=== PATIENT | male | born 1950 | race African-American/Black ===

== ENCOUNTER 2018-01-08 05:25 | Day surgery (SDC) | payer MEDICARE ==
[~2018-01-08] VITALS: Ht 193 cm; Wt 79.8 kg
[~2018-01-08 05:25] MED LIST: AMLO10TA80 PO; ASPI-1158 PO; HYDR500C18 PO; LOSA50TA20 PO; METO-385 PO; MULT-1008; SIMV20TA2 PO
[2018-01-08] MEDS ORDERED: SODIUM CHLORIDE 0.9% 1,000 ML IV SCH (06:25)
[2018-01-08] MEDS ORDERED: SKIN ADHESIVE 0.7 GM EA TOP ONE (07:24)
[2018-01-08] MEDS ORDERED: BUPIVACAINE HCL 0.5% (5MG/ML) 50ML ONE (07:24)
[2018-01-08] MEDS ORDERED: MIDAZOLAM HCL 2 MG/2 ML VIAL ONE (07:37)
[2018-01-08] MEDS ORDERED: ROCURONIUM BROMIDE 10MG/ML VIAL 5ML IV ONE (07:37)
[2018-01-08] MEDS ORDERED: PROPOFOL 200MG/20ML VIAL IV ONE (07:37)
[2018-01-08] MEDS ORDERED: FENTANYL CITRATE/PF 50MCG/ML 5ML VIAL ONE (07:37)
[2018-01-08] MEDS ORDERED: ONDANSETRON HCL 4MG/2ML INJ IV PRN (08:00)
[2018-01-08] MEDS ORDERED: FENTANYL CITRATE/PF 50MCG/ML 2ML VIAL IV PRN (08:00)
[2018-01-08] MEDS ORDERED: GLYCOPYRROLATE 0.2 MG/ML 2ML VIAL ONE (08:11)
[2018-01-08] MEDS ORDERED: LIDOCAINE HCL/PF 1% 10 MG/ML 5ML VIAL ONE (08:17)
[2018-01-08] MEDS ORDERED: CEFAZOLIN SODIUM 1000MG/VIAL ONE (08:17)
[2018-01-08] MEDS ORDERED: METOCLOPRAMIDE HCL 10MG/2ML VIAL ONE (08:18)
[2018-01-08] MEDS ORDERED: DEXAMETHASONE 4MG/ML 1ML VIAL ONE (08:18)
[2018-01-08] MEDS ORDERED: ONDANSETRON HCL 4MG/2ML INJ ONE (08:18)
[2018-01-08] MEDS ORDERED: KETOROLAC 30MG/ML VIAL ONE (08:18)
== END 2018-01-08 10:30 | disposition home or self-care (01) ==
LOC: OR 05:25
PROVIDERS: ATTEND Surgery
DX: K40.90 Unilateral inguinal hernia, without obstruction or gangrene, not specified as recurrent (principal); J44.9 Chronic obstructive pulmonary disease, unspecified; I11.9 Hypertensive heart disease without heart failure; E78.2 Mixed hyperlipidemia; Z79.899 Other long term (current) drug therapy; Z79.82 Long term (current) use of aspirin
CPT/HCPCS: 49505; C1781; G0168; J0690; J1100; J1885; J2250; J2405; J2765; J3010; J3490; J7030; J2704

== ENCOUNTER 2018-05-20 07:35 | Inpatient (IN) | payer MEDICARE ==
[~2018-05-20] VITALS: Ht 193 cm; Wt 83.0 kg
[2018-05-20] MEDS ORDERED: ASPIRIN 81MG TABLET PO ONE (09:45)
[2018-05-20 10:05] LABS: HEMATOCRIT. 51.2 % (42.0-52.0); HEMOGLOBIN. 17.7 g/dL (14.0-18.0); MEAN CORPUSCULAR HEMOGLOBIN 38.2 pg (28.0-32.0); MEAN CORPUSCULAR VOLUME 110.1 fL (80.0-94.0); MEAN PLATELET VOLUME 10.6 fl (7.4-10.4); PLATELET 211 x1000/uL (130-400); RED BLOOD CELL COUNT 4.65 mill/uL (4.7-6.1); RED CELL DISTRIBUTION WIDTH 13.4 % (11.6-14.6)
[2018-05-20 10:12] LABS: CHLORIDE 103 mEq/L (98-107)
[2018-05-20 10:13] LABS: CLARITY URINE CLEAR (CLEAR); COLOR URINE YELLOW (YELLOW); KETONES URINE NEGATIVE (NEGATIVE); LEUKOCYTE ESTERASE URINE NEGATIVE (NEGATIVE); NITRITE URINE NEGATIVE (NEGATIVE); OCCULT BLOOD URINE 1+ (NEGATIVE); PH URINE 5.5 (4.5-8.0); PROTEIN URINE 2+ (NEGATIVE); SPECIFIC GRAVITY URINE 1.016 (1.005-1.030); UROBILINOGEN URINE 0.2 E.U./dL (0.2-1.0)
[2018-05-20] MEDS ORDERED: ONDANSETRON HCL 4MG/2ML INJ IV STA (10:26)
[2018-05-20] MEDS ORDERED: MORPHINE SULFATE 4 MG/ML CPJ (NOT FOR IM USE) IV STA (10:26)
[2018-05-20] MEDS ORDERED: ENALAPRIL 2.5MG/2ML VIAL 2ML IV ONE (10:30)
[2018-05-20] MEDS ORDERED: AZITHROMYCIN 500 MG in DEXT 5% WATER 250 ML IV STA (10:32)
[2018-05-20 11:03] LABS: PLATELET ESTIMATE NORMAL
[2018-05-20 11:48] LABS: INR 1.1; PARTIAL THROMBOPLASTIN TIME 25.1 sec (23.4-31.0); PROTHROMBIN TIME 10.7 sec (9.1-11.1)
[2018-05-20 11:56] LABS: PHOSPHORUS 4.4 mg/dL (2.5-4.9)
[2018-05-20 12:05] LABS: CREATINE KINASE MB FRACTION 3.7 ng/mL (0.5-3.6)
[2018-05-20] MEDS ORDERED: MORPHINE SULFATE 4 MG/ML CPJ (NOT FOR IM USE) IV ONE (12:30)
[2018-05-20 15:14] VITALS: BP 183/97
[2018-05-20 16:00] VITALS: BP 176/92
[2018-05-20] MEDS ORDERED: IPRATROPIUM/ALBUTEROL 0.5-3(2.5)MG/3ML NEB HHN PRN (16:45)
[2018-05-20] MEDS ORDERED: CLONIDINE 0.2MG TABLET PO PRN (17:15)
[2018-05-20] MEDS: AMLODIPINE 5MG TABLET PO SCH (17:38)
[2018-05-20 18:00] VITALS: BP 170/87
[2018-05-20] MEDS: CLONIDINE 0.1MG TABLET PO PRN (18:50)
[2018-05-20 20:00] VITALS: BP 170/86
[2018-05-20] MEDS: METOPROLOL TARTRATE 25MG TABLET PO SCH (20:58)
[2018-05-20] MEDS: MORPHINE SULFATE 4 MG/ML CPJ (NOT FOR IM USE) IV PRN (21:03)
[2018-05-20 22:00] VITALS: BP 149/74
[2018-05-21] VITALS (11 sets, daily range): BP systolic 110–154; BP diastolic 53–76
[2018-05-21 07:03] LABS: BASOPHILS % 0.6 % (0.0-2.0); EOSINOPHILS % 1.4 % (0.0-5.0); HEMATOCRIT. 42.3 % (42.0-52.0); HEMOGLOBIN. 14.5 g/dL (14.0-18.0); LYMPHOCYTES % 20.5 % (20.0-50.0); MEAN CORPUSCULAR HEMOGLOBIN 37.7 pg (28.0-32.0); MEAN CORPUSCULAR VOLUME 110.1 fL (80.0-94.0); MEAN PLATELET VOLUME 10.7 fl (7.4-10.4); NEUTROPHILS % 64.5 % (40.0-76.0); PLATELET 171 x1000/uL (130-400); RED BLOOD CELL COUNT 3.84 mill/uL (4.7-6.1); RED CELL DISTRIBUTION WIDTH 13.4 % (11.6-14.6)
[2018-05-21 07:43] LABS: CREATINE KINASE MB FRACTION 1.7 ng/mL (0.5-3.6)
[2018-05-21] MEDS: AMLODIPINE 5MG TABLET PO SCH ×2 (08:48→22:03)
[2018-05-21] MEDS: METOPROLOL TARTRATE 25MG TABLET PO SCH ×2 (08:49→22:03)
[2018-05-21] MEDS: MORPHINE SULFATE 4 MG/ML CPJ (NOT FOR IM USE) IV PRN ×2 (09:19→18:47)
[2018-05-21] MEDS: SODIUM CHLORIDE 0.9% 1,000 ML IV SCH ×2 (11:15→22:04)
[2018-05-21] MEDS: TRAMADOL 50MG TABLET PO PRN (13:47)
[2018-05-22] VITALS (12 sets, daily range): BP systolic 140–175; BP diastolic 69–119
[2018-05-22] MEDS: MORPHINE SULFATE 4 MG/ML CPJ (NOT FOR IM USE) IV PRN (05:45)
[2018-05-22 07:23] LABS: BASOPHILS % 0.5 % (0.0-2.0); HEMATOCRIT. 40.7 % (42.0-52.0); LYMPHOCYTES % 17.6 % (20.0-50.0); MEAN CORPUSCULAR HEMOGLOBIN 37.8 pg (28.0-32.0); MEAN CORPUSCULAR VOLUME 109.9 fL (80.0-94.0); MEAN PLATELET VOLUME 10.9 fl (7.4-10.4); MONOCYTES % 12.1 % (2.0-8.0); NEUTROPHILS % 67.8 % (40.0-76.0); PLATELET 151 x1000/uL (130-400); RED CELL DISTRIBUTION WIDTH 13.5 % (11.6-14.6)
[2018-05-22] MEDS: METOPROLOL TARTRATE 25MG TABLET PO SCH ×2 (08:16→21:25)
[2018-05-22] MEDS: SODIUM CHLORIDE 0.9% 1,000 ML IV SCH ×2 (08:16→17:57)
[2018-05-22] MEDS: AMLODIPINE 5MG TABLET PO SCH ×2 (08:17→21:25)
[2018-05-22] MEDS: FOLIC ACID/VITAMIN B COMP W-C TABLET PO SCH (13:37)
[2018-05-22] MEDS: HYDRALAZINE HCL 25MG TABLET PO SCH ×2 (13:38→21:25)
[2018-05-22] MEDS: TRAMADOL 50MG TABLET PO PRN ×2 (13:38→21:32)
[2018-05-23] VITALS (12 sets, daily range): BP systolic 155–178; BP diastolic 77–89
[2018-05-23] MEDS: MORPHINE SULFATE 4 MG/ML CPJ (NOT FOR IM USE) IV PRN (02:38)
[2018-05-23] MEDS: SODIUM CHLORIDE 0.9% 1,000 ML IV SCH ×2 (03:50→13:49)
[2018-05-23] MEDS: HYDRALAZINE HCL 25MG TABLET PO SCH ×2 (05:44→14:31)
[2018-05-23] MEDS: TRAMADOL 50MG TABLET PO PRN ×3 (05:48→19:52)
[2018-05-23 07:59] LABS: BASOPHILS % 0.4 % (0.0-2.0); EOSINOPHILS % 1.2 % (0.0-5.0); LYMPHOCYTES % 12.3 % (20.0-50.0); MEAN CORPUSCULAR HEMOGLOBIN 37.6 pg (28.0-32.0); MEAN CORPUSCULAR VOLUME 109.9 fL (80.0-94.0); MEAN PLATELET VOLUME 10.4 fl (7.4-10.4); MONOCYTES % 10.2 % (2.0-8.0); NEUTROPHILS % 75.9 % (40.0-76.0); PLATELET 164 x1000/uL (130-400); RED BLOOD CELL COUNT 3.73 mill/uL (4.7-6.1); RED CELL DISTRIBUTION WIDTH 13.3 % (11.6-14.6)
[2018-05-23] MEDS: METOPROLOL TARTRATE 25MG TABLET PO SCH ×2 (08:16→21:07)
[2018-05-23] MEDS: AMLODIPINE 5MG TABLET PO SCH (08:16)
[2018-05-23] MEDS: FOLIC ACID/VITAMIN B COMP W-C TABLET PO SCH (08:16)
[2018-05-23] MEDS: SODIUM CHLORIDE 0.45% 1,000 ML IV SCH ×2 (09:49→19:25)
[2018-05-23] MEDS: NIFEDIPINE XL 60MG TAB PO SCH (15:06)
[2018-05-23 19:11] LABS: ANTI-NUCLEAR ANTIBODIES DIRECT Negative (Negative)
[2018-05-23] MEDS: HYDRALAZINE HCL 50MG TABLET PO SCH (21:08)
[2018-05-24] VITALS (12 sets, daily range): BP systolic 124–146; BP diastolic 67–77
[2018-05-24] MEDS: MORPHINE SULFATE 4 MG/ML CPJ (NOT FOR IM USE) IV PRN (00:03)
[2018-05-24] MEDS: SODIUM CHLORIDE 0.45% 1,000 ML IV SCH ×2 (05:11→15:42)
[2018-05-24] MEDS: HYDRALAZINE HCL 50MG TABLET PO SCH ×3 (05:11→22:46)
[2018-05-24] MEDS: TRAMADOL 50MG TABLET PO PRN (05:16)
[2018-05-24 05:25] LABS: COMPLEMENT C3 91 mg/dL (82-167)
[2018-05-24 07:10] LABS: BASOPHILS % 0.4 % (0.0-2.0); EOSINOPHILS % 0.7 % (0.0-5.0); HEMATOCRIT. 42.5 % (42.0-52.0); HEMOGLOBIN. 14.7 g/dL (14.0-18.0); LYMPHOCYTES % 14.4 % (20.0-50.0); MEAN CORPUSCULAR HEMOGLOBIN 37.8 pg (28.0-32.0); MEAN CORPUSCULAR VOLUME 109.5 fL (80.0-94.0); MEAN PLATELET VOLUME 10.6 fl (7.4-10.4); MONOCYTES % 9.6 % (2.0-8.0); NEUTROPHILS % 74.9 % (40.0-76.0); PLATELET 198 x1000/uL (130-400); RED BLOOD CELL COUNT 3.88 mill/uL (4.7-6.1)
[2018-05-24] MEDS: METOPROLOL TARTRATE 25MG TABLET PO SCH ×2 (08:16→20:57)
[2018-05-24] MEDS: NIFEDIPINE XL 60MG TAB PO SCH (08:16)
[2018-05-24] MEDS: FOLIC ACID/VITAMIN B COMP W-C TABLET PO SCH (08:16)
[2018-05-25] VITALS (23 sets, daily range): BP systolic 121–169; BP diastolic 73–87
[2018-05-25] MEDS: HYDRALAZINE HCL 50MG TABLET PO SCH ×3 (06:00→21:09)
[2018-05-25] MEDS: SODIUM CHLORIDE 0.45% 1,000 ML IV SCH ×3 (06:10→21:10)
[2018-05-25 07:47] LABS: BASOPHILS % 0.4 % (0.0-2.0); EOSINOPHILS % 1.1 % (0.0-5.0); HEMATOCRIT. 40.7 % (42.0-52.0); HEMOGLOBIN. 14.2 g/dL (14.0-18.0); LYMPHOCYTES % 14.8 % (20.0-50.0); MEAN CORPUSCULAR HEMOGLOBIN 37.9 pg (28.0-32.0); MEAN CORPUSCULAR VOLUME 108.7 fL (80.0-94.0); MEAN PLATELET VOLUME 10.5 fl (7.4-10.4); MONOCYTES % 12.1 % (2.0-8.0); NEUTROPHILS % 71.6 % (40.0-76.0); PLATELET 191 x1000/uL (130-400); RED BLOOD CELL COUNT 3.74 mill/uL (4.7-6.1); RED CELL DISTRIBUTION WIDTH 13.3 % (11.6-14.6)
[2018-05-25] MEDS: METOPROLOL TARTRATE 25MG TABLET PO SCH ×2 (08:22→21:09)
[2018-05-25] MEDS ORDERED: AMIODARONE HCL 50MG/ML 3ML VIAL IV ONE (08:45)
[2018-05-25] MEDS ORDERED: KCL 20MEQ/100ML PREMIX 100 ML IV NR (09:00)
[2018-05-25] MEDS ORDERED: POTASSIUM CHLORIDE INJ 10 MEQ in SODIUM CHLORIDE 0.9% 100 ML IV NR (09:00)
[2018-05-25] MEDS: NIFEDIPINE XL 60MG TAB PO SCH (09:34)
[2018-05-25] MEDS: FOLIC ACID/VITAMIN B COMP W-C TABLET PO SCH (09:34)
[2018-05-25] MEDS ORDERED: AMIODARONE HCL 150 MG in DEXT 5% WATER 100 ML IV NR (10:00)
[2018-05-25] MEDS ORDERED: AMIODARONE HCL 900 MG in DEXT 5% WATER 482 ML IV NR (10:10)
[2018-05-25] MEDS ORDERED: LIDOCAINE HCL 1% 20ML VIAL (Pyxis) INJ ONE (11:34)
[2018-05-25] MEDS ORDERED: SODIUM BICARBONATE 4% (2.4MEQ) 5ML VIAL IV ONE (11:34)
[2018-05-25] MEDS ORDERED: FENTANYL CITRATE/PF 50MCG/ML 2ML VIAL ONE (11:40)
[2018-05-25] MEDS ORDERED: FENTANYL CITRATE/PF 50MCG/ML 2ML VIAL IV ONE (12:00)
[2018-05-25] MEDS: TRAMADOL 50MG TABLET PO PRN (13:59)
[2018-05-25 16:44] LABS: HEMATOCRIT 40.9 % (42.0-52.0)
[2018-05-26] VITALS (14 sets, daily range): BP systolic 149–177; BP diastolic 69–103
[2018-05-26 05:49] LABS: BASOPHILS % 0.5 % (0.0-2.0); EOSINOPHILS % 0.5 % (0.0-5.0); HEMATOCRIT. 39.9 % (42.0-52.0); HEMOGLOBIN. 13.9 g/dL (14.0-18.0); LYMPHOCYTES % 10.4 % (20.0-50.0); MEAN CORPUSCULAR HEMOGLOBIN 37.5 pg (28.0-32.0); MEAN CORPUSCULAR VOLUME 107.9 fL (80.0-94.0); MEAN PLATELET VOLUME 9.9 fl (7.4-10.4); MONOCYTES % 9.2 % (2.0-8.0); NEUTROPHILS % 79.4 % (40.0-76.0); PLATELET 179 x1000/uL (130-400); RED CELL DISTRIBUTION WIDTH 13.2 % (11.6-14.6)
[2018-05-26] MEDS: HYDRALAZINE HCL 50MG TABLET PO SCH ×3 (08:07→21:00)
[2018-05-26] MEDS: TRAMADOL 50MG TABLET PO PRN (08:08)
[2018-05-26] MEDS: FOLIC ACID/VITAMIN B COMP W-C TABLET PO SCH (08:23)
[2018-05-26] MEDS: SODIUM CHLORIDE 0.45% 1,000 ML IV SCH ×2 (08:23→18:47)
[2018-05-26] MEDS: NIFEDIPINE XL 60MG TAB PO SCH ×2 (08:24→20:59)
[2018-05-26] MEDS: METOPROLOL TARTRATE 25MG TABLET PO SCH (08:24)
[2018-05-26] MEDS ORDERED: POTASSIUM CHLORIDE 20MEQ/PACKET PO NR (09:39)
[2018-05-26] MEDS: CLONIDINE 0.1MG TABLET PO PRN ×2 (10:14→15:33)
[2018-05-26] MEDS ORDERED: TRAMADOL 50MG TABLET PO PRN (13:30)
[2018-05-26] MEDS ORDERED: AMIODARONE HCL 900 MG in DEXT 5% WATER 500 ML IV NR (14:30)
[2018-05-26] MEDS: DOCUSATE SODIUM 100MG CAPSULE PO SCH (17:12)
[2018-05-26] MEDS: METOPROLOL TARTRATE 50MG TABLET PO SCH (20:59)
[2018-05-27] VITALS (12 sets, daily range): BP systolic 142–159; BP diastolic 68–79
[2018-05-27] MEDS: HYDRALAZINE HCL 50MG TABLET PO SCH ×3 (06:21→22:01)
[2018-05-27 07:57] LABS: BASOPHILS % 0.6 % (0.0-2.0); EOSINOPHILS % 1.5 % (0.0-5.0); HEMATOCRIT. 40.6 % (42.0-52.0); HEMOGLOBIN. 14.1 g/dL (14.0-18.0); LYMPHOCYTES % 9.7 % (20.0-50.0); MEAN CORPUSCULAR HEMOGLOBIN 37.5 pg (28.0-32.0); MEAN CORPUSCULAR VOLUME 108.1 fL (80.0-94.0); MEAN PLATELET VOLUME 10.4 fl (7.4-10.4); MONOCYTES % 12.1 % (2.0-8.0); NEUTROPHILS % 76.1 % (40.0-76.0); PLATELET 182 x1000/uL (130-400); RED BLOOD CELL COUNT 3.76 mill/uL (4.7-6.1); RED CELL DISTRIBUTION WIDTH 13.4 % (11.6-14.6)
[2018-05-27] MEDS: SODIUM CHLORIDE 0.45% 1,000 ML IV SCH ×2 (08:45→22:04)
[2018-05-27] MEDS: DOCUSATE SODIUM 100MG CAPSULE PO SCH ×2 (08:47→17:48)
[2018-05-27] MEDS: METOPROLOL TARTRATE 50MG TABLET PO SCH ×2 (08:48→22:01)
[2018-05-27] MEDS: NIFEDIPINE XL 60MG TAB PO SCH ×2 (08:48→22:01)
[2018-05-27] MEDS: FOLIC ACID/VITAMIN B COMP W-C TABLET PO SCH (08:48)
[2018-05-27] MEDS ORDERED: POTASSIUM CHLORIDE IV ONE (10:45)
[2018-05-27] MEDS ORDERED: DEXT 10% IV ONE (10:45)
[2018-05-27] MEDS ORDERED: WATER IV ONE (10:45)
[2018-05-27] MEDS: CITRIC ACID/SODIUM CITRATE SOLN 30ML UDC PO SCH ×2 (11:41→17:48)
[2018-05-27] MEDS ORDERED: POTASSIUM CHLORIDE INJ 40 MEQ in DEXT 5% WATER 250 ML IV NR (13:00)
[2018-05-27] MEDS: AMIODARONE HCL 200 MG TABLET PO SCH ×2 (13:05→22:04)
[2018-05-28] VITALS (10 sets, daily range): BP systolic 138–157; BP diastolic 68–80
[2018-05-28] MEDS: HYDRALAZINE HCL 50MG TABLET PO SCH ×2 (05:23→15:04)
[2018-05-28] MEDS: NIFEDIPINE XL 60MG TAB PO SCH (08:52)
[2018-05-28] MEDS: DOCUSATE SODIUM 100MG CAPSULE PO SCH (08:53)
[2018-05-28] MEDS: AMIODARONE HCL 200 MG TABLET PO SCH (08:53)
[2018-05-28] MEDS: FOLIC ACID/VITAMIN B COMP W-C TABLET PO SCH (08:53)
[2018-05-28] MEDS: METOPROLOL TARTRATE 50MG TABLET PO SCH (08:53)
[2018-05-28] MEDS: CITRIC ACID/SODIUM CITRATE SOLN 30ML UDC PO SCH (08:58)
[2018-05-28] MEDS: SODIUM CHLORIDE 0.45% 1,000 ML IV SCH (12:22)
== END 2018-05-28 17:24 | disposition home or self-care (01) | DRG 841 ==
LOC: ER 08:45 → EDBEDREQ 10:32 → 5EST 11:13 → EDBEDREQ 11:17 → EDBEDREQSVC 11:58 → ENRESERV 13:38
PROVIDERS: ADMIT Family Medicine Adult Medicine; ATTEND Specialist
PROC: 0WBH3ZX Excision of Retroperitoneum, Percutaneous Approach, Diagnostic (ICD-10-PCS; principal; 2018-05-25)
DX: C94.6 Myelodysplastic disease, not elsewhere classified (principal); N17.9 Acute kidney failure, unspecified; R19.00 Intra-abdominal and pelvic swelling, mass and lump, unspecified site; N13.9 Obstructive and reflux uropathy, unspecified; E78.5 Hyperlipidemia, unspecified; N18.9 Chronic kidney disease, unspecified; I12.9 Hypertensive chronic kidney disease with stage 1 through stage 4 chronic kidney disease, or unspecified chronic kidney disease; E86.9 Volume depletion, unspecified; I73.9 Peripheral vascular disease, unspecified; F17.210 Nicotine dependence, cigarettes, uncomplicated; R07.81 Pleurodynia; R07.89 Other chest pain; J44.9 Chronic obstructive pulmonary disease, unspecified; I25.10 Atherosclerotic heart disease of native coronary artery without angina pectoris; F12.90 Cannabis use, unspecified, uncomplicated; I48.0 Paroxysmal atrial fibrillation; R63.4 Abnormal weight loss; M54.9 Dorsalgia, unspecified; Z79.82 Long term (current) use of aspirin; Z68.22 Body mass index [BMI] 22.0-22.9, adult; Z79.899 Other long term (current) drug therapy; Z95.5 Presence of coronary angioplasty implant and graft
CPT/HCPCS: 32405; 36415; 71045; 71250; 74176; 77012; 80048; 80076; 82550; 82553; 82575; 83605; 83735; 83880; 84100; 84132; 84484; 85014; 85018; 86038; 86160; 88305; 93005; 93306; 96365; 96375; 99291; J0282; J0456; J2270; J2405; J3010; J3480; J3490; J7030; J7050; J7060

== ENCOUNTER 2018-06-21 15:05 | Inpatient (IN) | payer MEDICARE ==
[~2018-06-21] VITALS: Ht 193 cm; Wt 65.8 kg
[~2018-06-21 15:05] MED LIST changes: -HYDR500C18 PO
[2018-06-21] MEDS ORDERED: HYDROCODONE/ACETAMINOPHEN 10/325MG TABLET PO ONE (16:00)
[2018-06-21 16:26] LABS: HEMATOCRIT. 47.6 % (42.0-52.0); MEAN CORPUSCULAR HEMOGLOBIN 34.6 pg (28.0-32.0); MEAN PLATELET VOLUME 10.9 fl (7.4-10.4); PLATELET 221 x1000/uL (130-400); RED BLOOD CELL COUNT 4.62 mill/uL (4.7-6.1); RED CELL DISTRIBUTION WIDTH 14.4 % (11.6-14.6)
[2018-06-21 16:30] LABS: CHLORIDE 98 mEq/L (98-107)
[2018-06-21 16:31] LABS: PROTHROMBIN TIME 10.5 sec (9.1-11.1)
[2018-06-21 16:50] LABS: PLATELET ESTIMATE NORMAL
[2018-06-21] MEDS ORDERED: SODIUM CHLORIDE 0.9% 1,000 ML IV ONE (17:00)
[2018-06-21] MEDS ORDERED: FENTANYL CITRATE/PF 50MCG/ML 2ML VIAL IV ONE (19:00)
[2018-06-21] MEDS ORDERED: IPRATROPIUM/ALBUTEROL 0.5-3(2.5)MG/3ML NEB INH PRN (21:15)
[2018-06-21] MEDS ORDERED: DIPHENHYDRAMINE 50MG/ML VIAL IV PRN (21:15)
[2018-06-21 21:49] LABS: CLARITY URINE CLEAR (CLEAR); COLOR URINE YELLOW (YELLOW); KETONES URINE TRACE (NEGATIVE); LEUKOCYTE ESTERASE URINE TRACE (NEGATIVE); NITRITE URINE NEGATIVE (NEGATIVE); OCCULT BLOOD URINE TRACE (NEGATIVE); PH URINE 5.5 (4.5-8.0); PROTEIN URINE 3+ (NEGATIVE); SPECIFIC GRAVITY URINE 1.015 (1.005-1.030); UROBILINOGEN URINE 0.2 E.U./dL (0.2-1.0)
[2018-06-21] MEDS ORDERED: METOPROLOL TARTRATE 5MG/5ML VIAL IV NR (22:00)
[2018-06-21 22:04] VITALS: BP 181/105
[2018-06-21 22:27] VITALS: BP 189/99
[2018-06-21] MEDS: SODIUM CHLORIDE 0.9% 1,000 ML IV SCH (23:27)
[2018-06-21] MEDS: MORPHINE SULFATE 4 MG/ML CPJ (NOT FOR IM USE) IV PRN (23:27)
[2018-06-22] VITALS (13 sets, daily range): BP systolic 148–179; BP diastolic 67–96
[2018-06-22] MEDS: CLONIDINE 0.1MG TABLET PO PRN ×2 (01:53→22:25)
[2018-06-22 07:07] LABS: HEMATOCRIT. 40.9 % (42.0-52.0); MEAN CORPUSCULAR HEMOGLOBIN 34.9 pg (28.0-32.0); MEAN CORPUSCULAR VOLUME 102.2 fL (80.0-94.0); MEAN PLATELET VOLUME 10.2 fl (7.4-10.4); PLATELET 162 x1000/uL (130-400); RED BLOOD CELL COUNT 4.01 mill/uL (4.7-6.1); RED CELL DISTRIBUTION WIDTH 14.5 % (11.6-14.6)
[2018-06-22 07:40] LABS: PHOSPHORUS 5.5 mg/dL (2.5-4.9)
[2018-06-22] MEDS: METOPROLOL TARTRATE 50MG TABLET PO SCH (08:07)
[2018-06-22] MEDS: AMLODIPINE 10MG TABLET PO SCH (08:07)
[2018-06-22] MEDS: ASPIRIN 81MG TABLET PO SCH (08:07)
[2018-06-22] MEDS: MORPHINE SULFATE 4 MG/ML CPJ (NOT FOR IM USE) IV PRN ×3 (08:11→20:20)
[2018-06-22] MEDS ORDERED: LEVOFLOXACIN 750MG PREMIX 150 ML IV NR (11:00)
[2018-06-22] MEDS: SODIUM CHLORIDE 0.9% 1,000 ML IV SCH ×2 (12:24→20:19)
[2018-06-22 14:35] LABS: PLATELET ESTIMATE NORMAL
[2018-06-23] VITALS (12 sets, daily range): BP systolic 149–176; BP diastolic 78–94
[2018-06-23] MEDS: MORPHINE SULFATE 4 MG/ML CPJ (NOT FOR IM USE) IV PRN ×4 (03:39→23:15)
[2018-06-23] MEDS: CLONIDINE 0.1MG TABLET PO PRN ×2 (04:10→18:24)
[2018-06-23] MEDS: SODIUM CHLORIDE 0.9% 1,000 ML IV SCH ×3 (06:07→21:41)
[2018-06-23 07:56] LABS: PHOSPHORUS 4.3 mg/dL (2.5-4.9)
[2018-06-23 07:57] LABS: BASOPHILS % 0.6 % (0.0-2.0); EOSINOPHILS % 1.7 % (0.0-5.0); HEMOGLOBIN. 13.5 g/dL (14.0-18.0); LYMPHOCYTES % 7.3 % (20.0-50.0); MEAN CORPUSCULAR HEMOGLOBIN 34.9 pg (28.0-32.0); MEAN CORPUSCULAR VOLUME 103.1 fL (80.0-94.0); MEAN PLATELET VOLUME 10.5 fl (7.4-10.4); MONOCYTES % 12.6 % (2.0-8.0); NEUTROPHILS % 77.8 % (40.0-76.0); PLATELET 146 x1000/uL (130-400); RED BLOOD CELL COUNT 3.88 mill/uL (4.7-6.1)
[2018-06-23] MEDS: METOPROLOL TARTRATE 50MG TABLET PO SCH (08:02)
[2018-06-23] MEDS: ASPIRIN 81MG TABLET PO SCH (08:02)
[2018-06-23] MEDS: AMLODIPINE 10MG TABLET PO SCH (08:02)
[2018-06-23] MEDS: DOCUSATE SODIUM 100MG CAPSULE PO PRN (08:03)
[2018-06-23 08:13] LABS: HEPATITIS B SURFACE ANTIGEN NEGATIVE
[2018-06-23] MEDS ORDERED: ALLOPURINOL 100 MG TABLET PO SCH (09:30)
[2018-06-23] MEDS ORDERED: ALLOPURINOL XX SCH (10:00)
[2018-06-23] MEDS: ALLOPURINOL 100 MG TABLET PO SCH (13:24)
[2018-06-23] MEDS ORDERED: CLONIDINE 0.1MG TABLET PO SCH (21:15)
[2018-06-24] VITALS (12 sets, daily range): BP systolic 165–179; BP diastolic 86–100
[2018-06-24] MEDS: CLONIDINE 0.1MG TABLET PO PRN ×2 (03:48→11:08)
[2018-06-24] MEDS: SODIUM CHLORIDE 0.9% 1,000 ML IV SCH ×3 (05:35→22:00)
[2018-06-24] MEDS: MORPHINE SULFATE 4 MG/ML CPJ (NOT FOR IM USE) IV PRN ×4 (05:35→22:01)
[2018-06-24] MEDS ORDERED: LIDOCAINE HCL 1% 20ML VIAL (Pyxis) INJ ONE (08:08)
[2018-06-24] MEDS: ASPIRIN 81MG TABLET PO SCH (08:52)
[2018-06-24] MEDS: METOPROLOL TARTRATE 50MG TABLET PO SCH (08:52)
[2018-06-24] MEDS: AMLODIPINE 10MG TABLET PO SCH (08:58)
[2018-06-24] MEDS ORDERED: LEVOFLOXACIN 500MG PREMIX 100 ML IV SCH (10:00)
[2018-06-24] MEDS: CITRIC ACID/SODIUM CITRATE SOLN 30ML UDC PO SCH ×2 (13:55→18:03)
[2018-06-24] MEDS: CLONIDINE 0.2MG TABLET PO PRN (18:02)
[2018-06-24] MEDS: ASCORBIC ACID 250 MG TABLET PO SCH (18:02)
[2018-06-24] MEDS: METOPROLOL TARTRATE 100MG TABLET PO SCH (22:00)
[2018-06-25] VITALS (13 sets, daily range): BP systolic 149–186; BP diastolic 80–117
[2018-06-25] MEDS: CLONIDINE 0.2MG TABLET PO PRN ×2 (01:24→10:39)
[2018-06-25] MEDS: MORPHINE SULFATE 4 MG/ML CPJ (NOT FOR IM USE) IV PRN ×5 (02:18→19:58)
[2018-06-25] MEDS: SODIUM CHLORIDE 0.9% 1,000 ML IV SCH ×2 (05:44→15:15)
[2018-06-25 06:42] LABS: BASOPHILS % 0.3 % (0.0-2.0); EOSINOPHILS % 0.6 % (0.0-5.0); HEMOGLOBIN. 14.6 g/dL (14.0-18.0); LYMPHOCYTES % 7.3 % (20.0-50.0); MEAN CORPUSCULAR HEMOGLOBIN 34.7 pg (28.0-32.0); MEAN CORPUSCULAR VOLUME 102.4 fL (80.0-94.0); MEAN PLATELET VOLUME 11.3 fl (7.4-10.4); MONOCYTES % 9.7 % (2.0-8.0); NEUTROPHILS % 82.1 % (40.0-76.0); PLATELET 134 x1000/uL (130-400); RED CELL DISTRIBUTION WIDTH 14.4 % (11.6-14.6)
[2018-06-25] MEDS: CITRIC ACID/SODIUM CITRATE SOLN 30ML UDC PO SCH ×3 (08:52→16:49)
[2018-06-25] MEDS: ALLOPURINOL 100 MG TABLET PO SCH (08:52)
[2018-06-25] MEDS: AMLODIPINE 10MG TABLET PO SCH (08:52)
[2018-06-25] MEDS: ASPIRIN 81MG TABLET PO SCH (08:52)
[2018-06-25] MEDS: FOLIC ACID/VITAMIN B COMP W-C TABLET PO SCH (08:53)
[2018-06-25] MEDS: ASCORBIC ACID 250 MG TABLET PO SCH ×2 (08:53→16:49)
[2018-06-25] MEDS: METOPROLOL TARTRATE 100MG TABLET PO SCH ×2 (08:56→21:26)
[2018-06-25] MEDS ORDERED: ZINC SULFATE 220 MG ( 50 ) CAPSULE PO SCH (09:00)
[2018-06-25] MEDS: NIFEDIPINE XL 60MG TAB PO SCH ×2 (11:29→21:25)
[2018-06-25] MEDS: HYDRALAZINE HCL 25MG TABLET PO SCH ×2 (13:21→22:43)
[2018-06-25] MEDS: CLONIDINE 0.1MG TABLET PO SCH ×2 (13:21→22:42)
[2018-06-26] VITALS (12 sets, daily range): BP systolic 112–152; BP diastolic 58–87
[2018-06-26] MEDS: MORPHINE SULFATE 4 MG/ML CPJ (NOT FOR IM USE) IV PRN ×5 (01:32→23:42)
[2018-06-26] MEDS: HYDRALAZINE HCL 25MG TABLET PO SCH ×3 (05:39→23:40)
[2018-06-26] MEDS: SODIUM CHLORIDE 0.9% 1,000 ML IV SCH (05:39)
[2018-06-26] MEDS: CLONIDINE 0.1MG TABLET PO SCH ×3 (05:39→23:39)
[2018-06-26 06:10] LABS: HEMOGLOBIN. 13.6 g/dL (14.0-18.0); MEAN CORPUSCULAR HEMOGLOBIN 34.1 pg (28.0-32.0); MEAN CORPUSCULAR VOLUME 102.3 fL (80.0-94.0); MEAN PLATELET VOLUME 11.3 fl (7.4-10.4); PLATELET 148 x1000/uL (130-400); RED BLOOD CELL COUNT 4.01 mill/uL (4.7-6.1); RED CELL DISTRIBUTION WIDTH 14.4 % (11.6-14.6)
[2018-06-26] MEDS: METOPROLOL TARTRATE 100MG TABLET PO SCH ×2 (08:18→22:28)
[2018-06-26] MEDS: CITRIC ACID/SODIUM CITRATE SOLN 30ML UDC PO SCH ×3 (08:18→17:15)
[2018-06-26] MEDS: ASCORBIC ACID 250 MG TABLET PO SCH ×2 (08:19→17:15)
[2018-06-26] MEDS: NIFEDIPINE XL 60MG TAB PO SCH ×2 (08:19→22:28)
[2018-06-26] MEDS: FOLIC ACID/VITAMIN B COMP W-C TABLET PO SCH (08:19)
[2018-06-26] MEDS: ASPIRIN 81MG TABLET PO SCH (08:19)
[2018-06-26] MEDS: ZINC SULFATE 220 MG ( 50 ) CAPSULE PO SCH (08:24)
[2018-06-26 11:55] LABS: HEPATITIS B SURFACE AB < 3.1 mIU/mL
[2018-06-26] MEDS ORDERED: FUROSEMIDE 40MG/4ML VIAL IVP SCH (13:15)
[2018-06-26 16:10] LABS: PLATELET ESTIMATE NORMAL
[2018-06-26] MEDS ORDERED: LEVOFLOXACIN 250MG TABLET PO SCH (17:00)
[2018-06-26 17:34] LABS: BG CARBOXYHEMOGLOBIN 1.2 % (0.5-1.5); BG DEOXYHEMOGLOBIN 11.5 % (0.0-5.0); BG HCO3 ACT 17.7 mmol/L (22.0-26.0); BG METHEMOGLOBIN 0.4 % (0.0-1.5); BG OXYGEN SATURATION 88.3 % (92.0-98.5); BG OXYHEMOGLOBIN 86.9 % (94.0-97.0); BG PCO2 27.1 mmHg (35.0-45.0); BG PH 7.434 (7.350-7.450); BG PO2 50.7 mmHg (75.0-100.0); BG SAMPLE SITE RIGHT BRACHIAL; BG TOTAL HEMOGLOBIN 13.5 g/dL (12.0-18.0); BG VENT MODE NASAL CANNULA
[2018-06-26] MEDS: CEFEPIME 1,000 MG in DEXTROSE 5% WATER 50 ML IV SCH (18:04)
[2018-06-26] MEDS ORDERED: VANCOMYCIN 1,750 MG in DEXT 5% WATER 250 ML IV NR (18:30)
[2018-06-26] MEDS: IPRATROPIUM/ALBUTEROL 0.5-3(2.5)MG/3ML NEB HHN SCH (21:49)
[2018-06-26] MEDS: BUDESONIDE 0.5MG/2ML NEB HHN SCH (21:50)
[2018-06-27] VITALS (12 sets, daily range): BP systolic 113–134; BP diastolic 65–80
[2018-06-27] MEDS: IPRATROPIUM/ALBUTEROL 0.5-3(2.5)MG/3ML NEB HHN SCH ×4 (04:30→20:46)
[2018-06-27] MEDS: MORPHINE SULFATE 4 MG/ML CPJ (NOT FOR IM USE) IV PRN ×3 (04:56→20:43)
[2018-06-27] MEDS: HYDRALAZINE HCL 25MG TABLET PO SCH ×3 (06:38→21:29)
[2018-06-27] MEDS: CLONIDINE 0.1MG TABLET PO SCH ×3 (06:39→22:31)
[2018-06-27 07:10] LABS: BASOPHILS % 0.4 % (0.0-2.0); EOSINOPHILS % 1.7 % (0.0-5.0); HEMATOCRIT. 37.5 % (42.0-52.0); HEMOGLOBIN. 12.4 g/dL (14.0-18.0); LYMPHOCYTES % 7.2 % (20.0-50.0); MEAN CORPUSCULAR HEMOGLOBIN 33.9 pg (28.0-32.0); MEAN CORPUSCULAR VOLUME 102.1 fL (80.0-94.0); MEAN PLATELET VOLUME 10.9 fl (7.4-10.4); MONOCYTES % 11.5 % (2.0-8.0); NEUTROPHILS % 79.2 % (40.0-76.0); PLATELET 151 x1000/uL (130-400); RED BLOOD CELL COUNT 3.67 mill/uL (4.7-6.1); RED CELL DISTRIBUTION WIDTH 14.1 % (11.6-14.6)
[2018-06-27] MEDS: CITRIC ACID/SODIUM CITRATE SOLN 30ML UDC PO SCH ×3 (09:00→17:00)
[2018-06-27] MEDS: BUDESONIDE 0.5MG/2ML NEB HHN SCH ×2 (09:05→20:47)
[2018-06-27] MEDS: CEFEPIME 1,000 MG in DEXTROSE 5% WATER 50 ML IV SCH (09:15)
[2018-06-27] MEDS: SODIUM CHLORIDE 0.9% 1,000 ML IV SCH ×2 (09:15→21:27)
[2018-06-27] MEDS: FOLIC ACID/VITAMIN B COMP W-C TABLET PO SCH (09:18)
[2018-06-27] MEDS: NIFEDIPINE XL 60MG TAB PO SCH ×2 (09:18→21:29)
[2018-06-27] MEDS: ALLOPURINOL 100 MG TABLET PO SCH (09:19)
[2018-06-27] MEDS: ASCORBIC ACID 250 MG TABLET PO SCH ×2 (09:19→17:00)
[2018-06-27] MEDS: METOPROLOL TARTRATE 100MG TABLET PO SCH ×2 (09:19→20:42)
[2018-06-27 09:21] LABS: CREATINE KINASE 21 IU/L (39-308)
[2018-06-27] MEDS: ZINC SULFATE 220 MG ( 50 ) CAPSULE PO SCH (09:28)
[2018-06-27] MEDS ORDERED: LEVOFLOXACIN 250MG TABLET PO SCH (11:00)
[2018-06-27] MEDS ORDERED: VANCOMYCIN 750 MG PREMIX 150 ML IV SCH (11:00)
[2018-06-28] VITALS (17 sets, daily range): BP systolic 100–141; BP diastolic 62–81
[2018-06-28] MEDS: MORPHINE SULFATE 4 MG/ML CPJ (NOT FOR IM USE) IV PRN ×3 (01:10→17:58)
[2018-06-28] MEDS: IPRATROPIUM/ALBUTEROL 0.5-3(2.5)MG/3ML NEB HHN SCH ×3 (01:55→21:30)
[2018-06-28] MEDS: CLONIDINE 0.1MG TABLET PO SCH ×3 (06:03→22:00)
[2018-06-28] MEDS: HYDRALAZINE HCL 25MG TABLET PO SCH ×3 (06:04→22:00)
[2018-06-28 06:46] LABS: HEMATOCRIT. 36.8 % (42.0-52.0); HEMOGLOBIN. 12.1 g/dL (14.0-18.0); MEAN CORPUSCULAR HEMOGLOBIN 33.6 pg (28.0-32.0); MEAN CORPUSCULAR VOLUME 102.1 fL (80.0-94.0); MEAN PLATELET VOLUME 10.9 fl (7.4-10.4); PLATELET 167 x1000/uL (130-400); RED CELL DISTRIBUTION WIDTH 14.4 % (11.6-14.6)
[2018-06-28 07:57] LABS: PHOSPHORUS 4.3 mg/dL (2.5-4.9)
[2018-06-28] MEDS: BUDESONIDE 0.5MG/2ML NEB HHN SCH ×2 (08:00→21:31)
[2018-06-28] MEDS: NIFEDIPINE XL 60MG TAB PO SCH ×2 (09:00→21:00)
[2018-06-28] MEDS: CITRIC ACID/SODIUM CITRATE SOLN 30ML UDC PO SCH ×3 (09:00→17:00)
[2018-06-28] MEDS ORDERED: SODIUM CHLORIDE 0.45% 1,000 ML IV SCH (09:45)
[2018-06-28] MEDS ORDERED: AMIODARONE HCL 50MG/ML 3ML VIAL IV ONE (10:00)
[2018-06-28] MEDS: ZINC SULFATE 220 MG ( 50 ) CAPSULE PO SCH (10:04)
[2018-06-28] MEDS: CEFEPIME 1,000 MG in DEXTROSE 5% WATER 50 ML IV SCH (10:04)
[2018-06-28] MEDS: ALLOPURINOL 100 MG TABLET PO SCH (10:05)
[2018-06-28] MEDS: ASCORBIC ACID 250 MG TABLET PO SCH ×2 (10:05→17:57)
[2018-06-28] MEDS: METOPROLOL TARTRATE 100MG TABLET PO SCH ×2 (10:05→21:00)
[2018-06-28] MEDS: FOLIC ACID/VITAMIN B COMP W-C TABLET PO SCH (10:05)
[2018-06-28] MEDS ORDERED: AMIODARONE HCL 150 MG in DEXT 5% WATER 100 ML IV SCH (10:30)
[2018-06-28] MEDS ORDERED: AMIODARONE HCL 900 MG in DEXT 5% WATER 500 ML IV SCH (10:40)
[2018-06-28] MEDS ORDERED: ENOXAPARIN 80MG/0.8ML SYR SUBCUT SCH (11:00)
[2018-06-28 11:53] LABS: PLATELET ESTIMATE NORMAL
[2018-06-28] MEDS: SODIUM CHLORIDE 0.9% 1,000 ML IV SCH (15:24)
[2018-06-29] VITALS (14 sets, daily range): BP systolic 112–167; BP diastolic 65–73
[2018-06-29] MEDS: IPRATROPIUM/ALBUTEROL 0.5-3(2.5)MG/3ML NEB HHN SCH ×4 (03:21→20:52)
[2018-06-29] MEDS: MORPHINE SULFATE 4 MG/ML CPJ (NOT FOR IM USE) IV PRN ×3 (03:44→20:21)
[2018-06-29] MEDS: SODIUM CHLORIDE 0.9% 1,000 ML IV SCH ×3 (03:54→21:22)
[2018-06-29] MEDS: ONDANSETRON HCL 4MG/2ML INJ IV PRN ×2 (05:19→20:20)
[2018-06-29] MEDS: CLONIDINE 0.1MG TABLET PO SCH ×3 (06:00→22:48)
[2018-06-29] MEDS: HYDRALAZINE HCL 25MG TABLET PO SCH ×3 (06:00→22:48)
[2018-06-29] MEDS: BUDESONIDE 0.5MG/2ML NEB HHN SCH ×2 (07:08→20:52)
[2018-06-29 07:30] LABS: HEMATOCRIT. 33.7 % (42.0-52.0); HEMOGLOBIN. 11.1 g/dL (14.0-18.0); MEAN CORPUSCULAR HEMOGLOBIN 33.7 pg (28.0-32.0); MEAN CORPUSCULAR VOLUME 102.4 fL (80.0-94.0); PLATELET 167 x1000/uL (130-400); RED BLOOD CELL COUNT 3.29 mill/uL (4.7-6.1); RED CELL DISTRIBUTION WIDTH 14.5 % (11.6-14.6)
[2018-06-29] MEDS ORDERED: LACTULOSE 20G/30ML UDC PO SCH (09:00)
[2018-06-29] MEDS: ASCORBIC ACID 250 MG TABLET PO SCH ×2 (09:00→17:28)
[2018-06-29] MEDS: CITRIC ACID/SODIUM CITRATE SOLN 30ML UDC PO SCH ×3 (09:00→17:28)
[2018-06-29] MEDS ORDERED: LACTULOSE 20G/30ML UDC PO PRN (09:00)
[2018-06-29] MEDS ORDERED: SODIUM BICARBONATE 4% (2.4MEQ) 5ML VIAL IV ONE (09:42)
[2018-06-29] MEDS: FOLIC ACID/VITAMIN B COMP W-C TABLET PO SCH (12:28)
[2018-06-29] MEDS: NIFEDIPINE XL 60MG TAB PO SCH ×2 (12:28→21:25)
[2018-06-29] MEDS: ZINC SULFATE 220 MG ( 50 ) CAPSULE PO SCH (12:29)
[2018-06-29] MEDS: AMIODARONE HCL 200 MG TABLET PO SCH ×2 (12:29→21:24)
[2018-06-29] MEDS: METOPROLOL TARTRATE 100MG TABLET PO SCH ×2 (12:29→20:20)
[2018-06-29] MEDS: CEFEPIME 1,000 MG in DEXTROSE 5% WATER 50 ML IV SCH (14:00)
[2018-06-29 16:43] LABS: BG CARBOXYHEMOGLOBIN 0.6 % (0.5-1.5); BG DEOXYHEMOGLOBIN 16.2 % (0.0-5.0); BG FRACTION INSPIRED OXYGEN 21; BG HCO3 ACT 15.5 mmol/L (22.0-26.0); BG METHEMOGLOBIN 0.1 % (0.0-1.5); BG OXYGEN SATURATION 83.7 % (92.0-98.5); BG OXYHEMOGLOBIN 83.1 % (94.0-97.0); BG PCO2 29.3 mmHg (35.0-45.0); BG PH 7.342 (7.350-7.450); BG PO2 47.1 mmHg (75.0-100.0); BG SAMPLE SITE RIGHT BRACHIAL; BG TOTAL HEMOGLOBIN 11.1 g/dL (12.0-18.0); BG VENT MODE ROOM AIR
[2018-06-29] MEDS: DOCUSATE SODIUM 100MG CAPSULE PO SCH (17:29)
[2018-06-30] VITALS (12 sets, daily range): BP systolic 97–133; BP diastolic 42–69
[2018-06-30] MEDS: IPRATROPIUM/ALBUTEROL 0.5-3(2.5)MG/3ML NEB HHN SCH ×4 (01:49→20:21)
[2018-06-30] MEDS: HYDRALAZINE HCL 25MG TABLET PO SCH ×3 (05:06→22:00)
[2018-06-30] MEDS: CLONIDINE 0.1MG TABLET PO SCH ×3 (05:07→22:00)
[2018-06-30] MEDS: ONDANSETRON HCL 4MG/2ML INJ IV PRN ×2 (05:08→21:03)
[2018-06-30] MEDS: MORPHINE SULFATE 4 MG/ML CPJ (NOT FOR IM USE) IV PRN ×4 (05:08→22:02)
[2018-06-30 07:25] LABS: HEMATOCRIT. 32.1 % (42.0-52.0); HEMOGLOBIN. 10.7 g/dL (14.0-18.0); MEAN CORPUSCULAR VOLUME 101.9 fL (80.0-94.0); PLATELET 168 x1000/uL (130-400); RED BLOOD CELL COUNT 3.15 mill/uL (4.7-6.1); RED CELL DISTRIBUTION WIDTH 14.7 % (11.6-14.6)
[2018-06-30] MEDS: AMIODARONE HCL 200 MG TABLET PO SCH ×2 (09:00→22:00)
[2018-06-30] MEDS: ASCORBIC ACID 250 MG TABLET PO SCH ×2 (09:00→17:00)
[2018-06-30] MEDS: ZINC SULFATE 220 MG ( 50 ) CAPSULE PO SCH (09:00)
[2018-06-30] MEDS: FOLIC ACID/VITAMIN B COMP W-C TABLET PO SCH (09:00)
[2018-06-30] MEDS: CITRIC ACID/SODIUM CITRATE SOLN 30ML UDC PO SCH ×3 (09:00→17:00)
[2018-06-30] MEDS: ALLOPURINOL 100 MG TABLET PO SCH (09:00)
[2018-06-30] MEDS: METOPROLOL TARTRATE 100MG TABLET PO SCH ×2 (09:00→21:00)
[2018-06-30] MEDS: DOCUSATE SODIUM 100MG CAPSULE PO SCH ×2 (09:00→17:00)
[2018-06-30] MEDS: NIFEDIPINE XL 60MG TAB PO SCH ×2 (09:00→21:00)
[2018-06-30] MEDS: CEFEPIME 1,000 MG in DEXTROSE 5% WATER 50 ML IV SCH (09:54)
[2018-06-30 11:15] LABS: PLATELET ESTIMATE NORMAL
[2018-06-30] MEDS ORDERED: PANTOPRAZOLE SODIUM 40 MG/VIAL IV SCH ×2 (11:30)
[2018-06-30] MEDS: PANTOPRAZOLE SODIUM 40 MG/VIAL IV SCH ×2 (12:28→21:03)
[2018-06-30] MEDS: SODIUM CHLORIDE 0.9% 1,000 ML IV SCH (12:39)
[2018-06-30 13:04] LABS: FERRITIN 1186 ng/mL (22-322); FOLIC ACID (FOLATE) SERUM >20 ng/mL ng/mL (>5.38)
[2018-06-30 13:15] LABS: VITAMIN B12 SERUM 449 pg/mL (211-911)
[2018-06-30 15:23] LABS: TOTAL IRON BINDING CAPACITY 111 ug/dL (250-450)
[2018-06-30 15:54] LABS: PLATELET ESTIMATE NORMAL
[2018-06-30] MEDS: SUCRALFATE 1 G/10 ML UDC PO SCH (22:01)
[2018-06-30 22:04] LABS: HEMATOCRIT 28.5 % (42.0-52.0); HEMOGLOBIN 9.6 g/dL (14.0-18.0)
[2018-06-30] MEDS: DOCUSATE SODIUM 100MG CAPSULE PO PRN (22:09)
[2018-07-01] VITALS (18 sets, daily range): BP systolic 47–120; BP diastolic 24–60
[2018-07-01 01:19] LABS: HEMATOCRIT 28.7 % (42.0-52.0); HEMOGLOBIN 9.6 g/dL (14.0-18.0)
[2018-07-01] MEDS: IPRATROPIUM/ALBUTEROL 0.5-3(2.5)MG/3ML NEB HHN SCH ×4 (01:31→17:44)
[2018-07-01] MEDS: MORPHINE SULFATE 4 MG/ML CPJ (NOT FOR IM USE) IV PRN ×2 (03:20→12:39)
[2018-07-01] MEDS: SODIUM CHLORIDE 0.9% 1,000 ML IV SCH ×2 (03:21→23:48)
[2018-07-01] MEDS: ONDANSETRON HCL 4MG/2ML INJ IV PRN (05:15)
[2018-07-01] MEDS: HYDRALAZINE HCL 25MG TABLET PO SCH ×3 (06:00→22:00)
[2018-07-01] MEDS: CLONIDINE 0.1MG TABLET PO SCH ×3 (06:00→22:00)
[2018-07-01] MEDS: SUCRALFATE 1 G/10 ML UDC PO SCH ×4 (06:40→23:51)
[2018-07-01 07:17] LABS: HEMATOCRIT. 28.9 % (42.0-52.0); HEMOGLOBIN. 9.7 g/dL (14.0-18.0); MEAN CORPUSCULAR HEMOGLOBIN 34.4 pg (28.0-32.0); MEAN CORPUSCULAR VOLUME 102.7 fL (80.0-94.0); MEAN PLATELET VOLUME 10.5 fl (7.4-10.4); PLATELET 178 x1000/uL (130-400); RED BLOOD CELL COUNT 2.81 mill/uL (4.7-6.1)
[2018-07-01 07:43] LABS: INR 1.1; PROTHROMBIN TIME 10.8 sec (9.1-11.1)
[2018-07-01] MEDS: METOPROLOL TARTRATE 100MG TABLET PO SCH ×2 (08:44→21:00)
[2018-07-01] MEDS: CITRIC ACID/SODIUM CITRATE SOLN 30ML UDC PO SCH ×4 (08:44→23:49)
[2018-07-01] MEDS: NIFEDIPINE XL 60MG TAB PO SCH ×2 (08:45→21:00)
[2018-07-01] MEDS: ASCORBIC ACID 250 MG TABLET PO SCH ×2 (08:53→17:00)
[2018-07-01] MEDS: CEFEPIME 1,000 MG in DEXTROSE 5% WATER 50 ML IV SCH (08:53)
[2018-07-01] MEDS: ZINC SULFATE 220 MG ( 50 ) CAPSULE PO SCH (08:54)
[2018-07-01] MEDS: AMIODARONE HCL 200 MG TABLET PO SCH ×2 (08:54→23:52)
[2018-07-01] MEDS: FOLIC ACID/VITAMIN B COMP W-C TABLET PO SCH (08:54)
[2018-07-01] MEDS: DOCUSATE SODIUM 100MG CAPSULE PO SCH ×2 (08:54→17:00)
[2018-07-01] MEDS: PANTOPRAZOLE SODIUM 40 MG/VIAL IV SCH ×2 (08:54→23:49)
[2018-07-01 14:11] LABS: PLATELET ESTIMATE NORMAL
[2018-07-01 18:20] LABS: BG BASE EXCESS -12.1 mmol/L (-2.0-2.0); BG CARBOXYHEMOGLOBIN 0.5 % (0.5-1.5); BG DEOXYHEMOGLOBIN 16.5 % (0.0-5.0); BG FRACTION INSPIRED OXYGEN 50; BG HCO3 ACT 13.1 mmol/L (22.0-26.0); BG METHEMOGLOBIN 0.3 % (0.0-1.5); BG OXYGEN SATURATION 83.4 % (92.0-98.5); BG OXYHEMOGLOBIN 82.7 % (94.0-97.0); BG PCO2 27.9 mmHg (35.0-45.0); BG PO2 49.9 mmHg (75.0-100.0); BG SAMPLE SITE RIGHT RADIAL; BG TOTAL HEMOGLOBIN 9.9 g/dL (12.0-18.0); BG VENT MODE MASK - VENTI
[2018-07-01] MEDS ORDERED: SODIUM BICARBONATE 8.4% 1 MEQ/ML 50ML SYR IV NR (18:38)
[2018-07-02] VITALS (103 sets, daily range): BP systolic 33–156; BP diastolic 16–95
[2018-07-02] MEDS: IPRATROPIUM/ALBUTEROL 0.5-3(2.5)MG/3ML NEB HHN SCH
[2018-07-02] MEDS ORDERED: PHENYLEPHRINE 80 MG in DEXT 5% WATER 492 ML IV PRN (01:20)
[2018-07-02] MEDS ORDERED: SODIUM BICARBONATE 8.4% 1 MEQ/ML 50ML SYR IV NR ×4 (04:45→22:24)
[2018-07-02] MEDS: HYDRALAZINE HCL 25MG TABLET PO SCH ×3 (06:00→21:35)
[2018-07-02] MEDS: CLONIDINE 0.1MG TABLET PO SCH ×3 (06:00→21:35)
[2018-07-02 06:08] LABS: BG BASE EXCESS -10.5 mmol/L (-2.0-2.0); BG CARBOXYHEMOGLOBIN 0.2 % (0.5-1.5); BG DEOXYHEMOGLOBIN 6.8 % (0.0-5.0); BG FRACTION INSPIRED OXYGEN 100; BG HCO3 ACT 14.2 mmol/L (22.0-26.0); BG METHEMOGLOBIN 0.2 % (0.0-1.5); BG OXYGEN SATURATION 93.2 % (92.0-98.5); BG OXYHEMOGLOBIN 92.8 % (94.0-97.0); BG PCO2 27.9 mmHg (35.0-45.0); BG PH 7.324 (7.350-7.450); BG PO2 69.4 mmHg (75.0-100.0); BG SAMPLE SITE RIGHT RADIAL; BG TOTAL HEMOGLOBIN 10.5 g/dL (12.0-18.0); BG VENT MODE MASK - NRB
[2018-07-02 06:13] LABS: HEMATOCRIT. 24.8 % (42.0-52.0); HEMOGLOBIN. 8.1 g/dL (14.0-18.0); MEAN CORPUSCULAR HEMOGLOBIN 33.4 pg (28.0-32.0); MEAN CORPUSCULAR VOLUME 101.5 fL (80.0-94.0); MEAN PLATELET VOLUME 10.7 fl (7.4-10.4); PLATELET 224 x1000/uL (130-400); RED BLOOD CELL COUNT 2.44 mill/uL (4.7-6.1); RED CELL DISTRIBUTION WIDTH 15.3 % (11.6-14.6)
[2018-07-02 07:41] LABS: PLATELET ESTIMATE NORMAL
[2018-07-02] MEDS ORDERED: SODIUM BICARBONATE 100 MEQ in DEXTROSE 5% WATER 1,000 ML IV SCH (08:00)
[2018-07-02] MEDS ORDERED: VECURONIUM BROMIDE 10 MG/VIAL IV ONE (08:00)
[2018-07-02] MEDS ORDERED: ETOMIDATE 2MG/ML 10ML VIAL IV ONE (08:00)
[2018-07-02] MEDS ORDERED: DEXT 5%/0.45% NACL 1000ML 1,000 ML IV SCH (08:00)
[2018-07-02] MEDS ORDERED: SODIUM CHLORIDE 0.9% 10ML VIAL ONE (08:00)
[2018-07-02] MEDS ORDERED: SODIUM BICARBONATE 8.4% 1 MEQ/ML 50ML SYR IV ONE (08:00)
[2018-07-02] MEDS ORDERED: FENTANYL CITRATE/PF 50MCG/ML 2ML VIAL ONE (08:22)
[2018-07-02] MEDS: PANTOPRAZOLE SODIUM 40 MG/VIAL IV SCH ×2 (08:30→21:34)
[2018-07-02] MEDS ORDERED: FENTANYL CITRATE/PF 50MCG/ML 2ML VIAL IV ONE (08:30)
[2018-07-02] MEDS ORDERED: PROPOFOL 10MG/ML 100ML 100 ML IV PRN (08:30)
[2018-07-02] MEDS: SUCRALFATE 1 G/10 ML UDC PO SCH ×4 (08:30→21:34)
[2018-07-02] MEDS: ZINC SULFATE 220 MG ( 50 ) CAPSULE PO SCH (08:31)
[2018-07-02] MEDS: FOLIC ACID/VITAMIN B COMP W-C TABLET PO SCH (08:31)
[2018-07-02] MEDS: METOPROLOL TARTRATE 100MG TABLET PO SCH ×2 (08:31→21:00)
[2018-07-02] MEDS: ALLOPURINOL 100 MG TABLET PO SCH (08:31)
[2018-07-02] MEDS: DOCUSATE SODIUM 100MG CAPSULE PO SCH ×2 (08:31→15:39)
[2018-07-02] MEDS: ASCORBIC ACID 250 MG TABLET PO SCH ×2 (08:31→15:39)
[2018-07-02] MEDS: AMIODARONE HCL 200 MG TABLET PO SCH ×2 (08:31→21:34)
[2018-07-02] MEDS: CEFEPIME 1,000 MG in DEXTROSE 5% WATER 50 ML IV SCH (08:32)
[2018-07-02] MEDS: NIFEDIPINE XL 60MG TAB PO SCH ×2 (08:32→21:00)
[2018-07-02 09:07] LABS: BG BASE EXCESS -7.6 mmol/L (-2.0-2.0); BG CARBOXYHEMOGLOBIN 0.3 % (0.5-1.5); BG DEOXYHEMOGLOBIN 2.6 % (0.0-5.0); BG FRACTION INSPIRED OXYGEN 100; BG HCO3 ACT 20.3 mmol/L (22.0-26.0); BG METHEMOGLOBIN 0.4 % (0.0-1.5); BG OXYGEN SATURATION 97.4 % (92.0-98.5); BG OXYHEMOGLOBIN 96.7 % (94.0-97.0); BG PCO2 53.1 mmHg (35.0-45.0); BG PO2 120.8 mmHg (75.0-100.0); BG SAMPLE SITE RIGHT BRACHIAL; BG TIDAL VOLUME(mL) 550 mL; BG TOTAL HEMOGLOBIN 9.6 g/dL (12.0-18.0); BG VENT MODE VENT - A/C; BG VENT RATE 14 set
[2018-07-02 09:17] LABS: INR 1.1; PARTIAL THROMBOPLASTIN TIME 38.3 sec (23.4-31.0)
[2018-07-02] MEDS ORDERED: IPRATROPIUM/ALBUTEROL 0.5-3(2.5)MG/3ML NEB HHN SCH (10:00)
[2018-07-02] MEDS ORDERED: DILTIAZEM HCL 125 MG in DEXT 5% WATER 100 ML IV PRN (11:15)
[2018-07-02] MEDS: CITRIC ACID/SODIUM CITRATE SOLN 30ML UDC PO SCH ×2 (12:04→15:39)
[2018-07-02] MEDS: PHENYLEPHRINE 80 MG in DEXT 5% WATER 492 ML IV PRN ×2 (12:32→21:04)
[2018-07-02] MEDS: IPRATROPIUM BROMIDE (0.02%) 0.5MG/2.5ML NEB HHN SCH ×3 (12:54→20:21)
[2018-07-02] MEDS: NOREPINEPHRINE 16 MG in DEXT 5% WATER 234 ML IV PRN (13:09)
[2018-07-02 15:02] LABS: HEMATOCRIT 28.4 % (42.0-52.0); HEMOGLOBIN 9.3 g/dL (14.0-18.0)
[2018-07-02 17:56] LABS: BG BASE EXCESS -14.2 mmol/L (-2.0-2.0); BG CARBOXYHEMOGLOBIN 0.2 % (0.5-1.5); BG HCO3 ACT 14.9 mmol/L (22.0-26.0); BG METHEMOGLOBIN 0.4 % (0.0-1.5); BG OXYGEN SATURATION 65.8 % (92.0-98.5); BG OXYHEMOGLOBIN 65.4 % (94.0-97.0); BG PCO2 49.7 mmHg (35.0-45.0); BG PH 7.095 (7.350-7.450); BG SAMPLE SITE RIGHT BRACHIAL; BG TIDAL VOLUME(mL) 550 mL; BG TOTAL HEMOGLOBIN 9.8 g/dL (12.0-18.0); BG VENT MODE VENT - A/C; BG VENT RATE 18 set
[2018-07-02] MEDS: VASOPRESSIN 10 UNIT in SODIUM CHLORIDE 0.9% 99.5 ML IV PRN (18:46)
[2018-07-02] MEDS: METRONIDAZOLE 500 MG PREMIX 100 ML IV SCH (21:34)
[2018-07-02 21:43] LABS: BG BASE EXCESS -15.4 mmol/L (-2.0-2.0); BG CARBOXYHEMOGLOBIN 0.3 % (0.5-1.5); BG DEOXYHEMOGLOBIN 8.2 % (0.0-5.0); BG FRACTION INSPIRED OXYGEN 100; BG HCO3 ACT 11.9 mmol/L (22.0-26.0); BG METHEMOGLOBIN 0.2 % (0.0-1.5); BG OXYGEN SATURATION 91.8 % (92.0-98.5); BG OXYHEMOGLOBIN 91.3 % (94.0-97.0); BG PCO2 33.5 mmHg (35.0-45.0); BG PO2 72.8 mmHg (75.0-100.0); BG SAMPLE SITE RIGHT RADIAL; BG TIDAL VOLUME(mL) 550 mL; BG TOTAL HEMOGLOBIN 9.8 g/dL (12.0-18.0); BG VENT MODE VENT - A/C; BG VENT RATE 24 set
[2018-07-02] MEDS ORDERED: SODIUM BICARBONATE 150 MEQ in DEXTROSE 5% WATER 1,000 ML IV SCH (23:30)
[2018-07-03] VITALS (52 sets, daily range): BP systolic 0–147; BP diastolic 0–102
[2018-07-03] MEDS: NOREPINEPHRINE 16 MG in DEXT 5% WATER 234 ML IV PRN ×2 (00:08→08:19)
[2018-07-03 00:11] LABS: HEMOGLOBIN 8.4 g/dL (14.0-18.0)
[2018-07-03] MEDS: VASOPRESSIN 10 UNIT in SODIUM CHLORIDE 0.9% 99.5 ML IV PRN ×3 (01:48→10:43)
[2018-07-03] MEDS: IPRATROPIUM BROMIDE (0.02%) 0.5MG/2.5ML NEB HHN SCH ×2 (01:50→08:53)
[2018-07-03] MEDS: DEXTROSE 50% WATER 50ML SYRINGE IV PRN ×3 (02:43→11:30)
[2018-07-03] MEDS: CLONIDINE 0.1MG TABLET PO SCH ×2 (05:40→11:40)
[2018-07-03] MEDS: HYDRALAZINE HCL 25MG TABLET PO SCH ×2 (05:40→11:39)
[2018-07-03 07:46] LABS: HEMATOCRIT. 23.7 % (42.0-52.0); HEMOGLOBIN. 7.1 g/dL (14.0-18.0); MEAN CORPUSCULAR HEMOGLOBIN 33.5 pg (28.0-32.0); MEAN PLATELET VOLUME 11.1 fl (7.4-10.4); PLATELET 91 x1000/uL (130-400); RED BLOOD CELL COUNT 2.13 mill/uL (4.7-6.1); RED CELL DISTRIBUTION WIDTH 15.9 % (11.6-14.6)
[2018-07-03] MEDS: AMIODARONE HCL 200 MG TABLET PO SCH (07:57)
[2018-07-03] MEDS: SUCRALFATE 1 G/10 ML UDC PO SCH ×2 (07:57→11:30)
[2018-07-03] MEDS: CITRIC ACID/SODIUM CITRATE SOLN 30ML UDC PO SCH ×2 (07:57→11:30)
[2018-07-03] MEDS: FOLIC ACID/VITAMIN B COMP W-C TABLET PO SCH (07:57)
[2018-07-03] MEDS: DOCUSATE SODIUM 100MG CAPSULE PO SCH (07:57)
[2018-07-03] MEDS: ZINC SULFATE 220 MG ( 50 ) CAPSULE PO SCH (07:57)
[2018-07-03] MEDS: PANTOPRAZOLE SODIUM 40 MG/VIAL IV SCH (07:57)
[2018-07-03] MEDS: ASCORBIC ACID 250 MG TABLET PO SCH (07:57)
[2018-07-03] MEDS: METRONIDAZOLE 500 MG PREMIX 100 ML IV SCH (07:58)
[2018-07-03 08:03] LABS: MEAN CORPUSCULAR VOLUME 111.5 fL (80.0-94.0)
[2018-07-03] MEDS: NIFEDIPINE XL 60MG TAB PO SCH (08:04)
[2018-07-03] MEDS: METOPROLOL TARTRATE 100MG TABLET PO SCH (08:04)
[2018-07-03 08:23] LABS: BG BASE EXCESS -24.1 mmol/L (-2.0-2.0); BG DEOXYHEMOGLOBIN 2.8 % (0.0-5.0); BG HCO3 ACT 6.3 mmol/L (22.0-26.0); BG METHEMOGLOBIN 0.3 % (0.0-1.5); BG OXYGEN SATURATION 97.2 % (92.0-98.5); BG OXYHEMOGLOBIN 96.9 % (94.0-97.0); BG PCO2 29.9 mmHg (35.0-45.0); BG PH 6.944 (7.350-7.450); BG PO2 131.2 mmHg (75.0-100.0); BG SAMPLE SITE RIGHT BRACHIAL; BG TIDAL VOLUME(mL) 550 mL; BG TOTAL HEMOGLOBIN 7.8 g/dL (12.0-18.0); BG VENT MODE VENT - A/C; BG VENT RATE 30 set
[2018-07-03] MEDS ORDERED: SODIUM BICARBONATE 8.4% 1 MEQ/ML 50ML SYR IV SCH (09:00)
[2018-07-03] MEDS ORDERED: CEFEPIME 1,000 MG in DEXTROSE 5% WATER 50 ML IV SCH (09:00)
[2018-07-03] MEDS: PHENYLEPHRINE 80 MG in DEXT 5% WATER 492 ML IV PRN (11:31)
[2018-07-03] MEDS ORDERED: RASBURICASE INJ NR (12:00)
[2018-07-03 12:34] LABS: HEMATOCRIT 18.3 % (42.0-52.0); HEMOGLOBIN 5.1 g/dL (14.0-18.0)
[2018-07-03 13:49] LABS: NUCLEATED RED BLOOD CELLS 11 /100 WBC
[2018-07-03 13:50] LABS: PLATELET ESTIMATE DECREASED
[2018-07-03] MEDS ORDERED: SODIUM BICARBONATE 150 MEQ in DEXT 10% WATER 1,000 ML IV SCH (14:00)
[2018-07-03 14:04] LABS: CREATINE KINASE 881 IU/L (39-308)
[2018-07-03] MEDS ORDERED: RASBURICASE IV NR (15:00)
[2018-07-03] MEDS ORDERED: SODIUM CHLORIDE 0.9% IV NR (15:00)
[2018-07-03] MEDS ORDERED: METRONIDAZOLE 500 MG PREMIX 100 ML IV SCH (21:00)
== END 2018-07-03 14:24 | disposition expired | DRG 871 ==
LOC: ER 16:02 → 3WST 16:58 → EDBEDREQ 17:02 → EDBEDREQTM 17:02 → EDBEDREQSVC 17:02 → ENRESERV 20:59 → CVICU 07-01 20:25
PROVIDERS: ADMIT Family Medicine Adult Medicine; ATTEND Family Medicine Adult Medicine
PROC: 02HV33Z Insertion of Infusion Device into Superior Vena Cava, Percutaneous Approach (ICD-10-PCS; 2018-06-24)
PROC: B548ZZA Ultrasonography of Superior Vena Cava, Guidance (ICD-10-PCS; 2018-06-24)
PROC: 0W9B3ZZ Drainage of Left Pleural Cavity, Percutaneous Approach (ICD-10-PCS; 2018-06-29)
PROC: 5A1945Z Respiratory Ventilation, 24-96 Consecutive Hours (ICD-10-PCS; principal; 2018-07-02)
PROC: 0BH17EZ Insertion of Endotracheal Airway into Trachea, Via Natural or Artificial Opening (ICD-10-PCS; 2018-07-02)
PROC: 05HM33Z Insertion of Infusion Device into Right Internal Jugular Vein, Percutaneous Approach (ICD-10-PCS; 2018-07-02)
PROC: B543ZZA Ultrasonography of Right Jugular Veins, Guidance (ICD-10-PCS; 2018-07-02)
DX: A41.9 Sepsis, unspecified organism (principal); R65.21 Severe sepsis with septic shock; J96.21 Acute and chronic respiratory failure with hypoxia; C85.10 Unspecified B-cell lymphoma, unspecified site; E87.1 Hypo-osmolality and hyponatremia; E87.2 Acidosis; J90 Pleural effusion, not elsewhere classified; J84.9 Interstitial pulmonary disease, unspecified; J98.19 Other pulmonary collapse; K92.2 Gastrointestinal hemorrhage, unspecified; N17.9 Acute kidney failure, unspecified; I12.9 Hypertensive chronic kidney disease with stage 1 through stage 4 chronic kidney disease, or unspecified chronic kidney disease; E83.52 Hypercalcemia; E86.0 Dehydration; J44.9 Chronic obstructive pulmonary disease, unspecified; N18.9 Chronic kidney disease, unspecified; B19.20 Unspecified viral hepatitis C without hepatic coma; D64.9 Anemia, unspecified; D69.6 Thrombocytopenia, unspecified; D73.89 Other diseases of spleen; D75.89 Other specified diseases of blood and blood-forming organs; E78.00 Pure hypercholesterolemia, unspecified; E78.5 Hyperlipidemia, unspecified; E87.70 Fluid overload, unspecified; F12.90 Cannabis use, unspecified, uncomplicated; F17.200 Nicotine dependence, unspecified, uncomplicated; I25.10 Atherosclerotic heart disease of native coronary artery without angina pectoris; I48.0 Paroxysmal atrial fibrillation; I71.4 Abdominal aortic aneurysm, without rupture; K57.30 Diverticulosis of large intestine without perforation or abscess without bleeding; K59.00 Constipation, unspecified; Z66 Do not resuscitate; I73.9 Peripheral vascular disease, unspecified; K82.8 Other specified diseases of gallbladder; K80.20 Calculus of gallbladder without cholecystitis without obstruction; N28.1 Cyst of kidney, acquired; E87.5 Hyperkalemia; S30.91XA Unspecified superficial injury of lower back and pelvis, initial encounter; X58.XXXA Exposure to other specified factors, initial encounter; Y93.89 Activity, other specified; Z79.82 Long term (current) use of aspirin; Z82.49 Family history of ischemic heart disease and other diseases of the circulatory system; Z95.5 Presence of coronary angioplasty implant and graft; Z95.820 Peripheral vascular angioplasty status with implants and grafts; Y92.89 Other specified places as the place of occurrence of the external cause; Y99.8 Other external cause status
CPT/HCPCS: 31500; 32555; 36415; 36569; 36600; 71045; 71250; 74018; 74176; 76700; 76937; 78582; 80048; 80076; 82040; 82105; 82310; 82330; 82375; 82550; 82575; 82607; 82728; 82746; 82805; 82962; 83540; 83550; 83605; 83615; 83735; 83970; 84100; 84134; 84145; 84156; 84478; 84550; 85014; 85018; 85044; 86705; 86706; 86803; 87070; 87340; 88108; 88312; 93005; 93306; 94002; 94003; 94640; 96361; 96374; 97162; 97535; 99291; A9558; C1725; C1752; C1887; C9113; J0282; J0692; J1650; J1940; J1956; J2270; J2370; J2405; J2704; J2783; J3010; J3370; J3490; J7030; J7040; J7050; J7060; J7070; J7620; J7626